=== PATIENT | female | born 1965 | race Caucasian/White ===

== ENCOUNTER 2021-01-11 15:45 | Outpatient (CLI) | payer BC, SELFPAY | END 2021-01-11 15:46 | disposition home or self-care (01) | LOC: ANHCOVIDVC 15:46 | PROVIDERS: PCP Family Medicine | DX: Z23 Encounter for immunization (principal) | CPT/HCPCS: 0001A; 91300 ==

== ENCOUNTER 2021-02-01 15:44 | Outpatient (CLI) | payer BC, SELFPAY | END 2021-02-01 15:45 | disposition home or self-care (01) | LOC: ANHCOVIDVC 15:44 | PROVIDERS: PCP Family Medicine | DX: Z23 Encounter for immunization (principal) | CPT/HCPCS: 0002A; 91300 ==

== ENCOUNTER → 2022-10-08 16:33 | Outpatient (CLI) | payer BC, SELFPAY ==
--- NOTE | ~2022-10-08 | XR_ITS ---
XR hip RT 2V w AP pelvis DATE: 10/08/2022 19:21 INDICATION: Right groin pain. No injury. TECHNIQUE: AP pelvis. AP and lateral views of right hip COMPARISON: None FINDINGS: There is moderate bilateral hip osteoarthritis, right greater than left. No fracture or dis location, avascular necrosis or bone destruction of the right hip is detected. No pelvic fracture or bone destruction. Normal alignment at the pubic symphysis and sacroiliac joints . IMPRESSION: Moderate bilateral hip osteoarthritis, right greater than left Reviewed, dictated and finalized at location B. PRODUCER
== END ==
PROVIDERS: PCP Nurse Practitioner Family; Visit Provider Nurse Practitioner Family
DX: M16.0 Bilateral primary osteoarthritis of hip (principal)
CPT/HCPCS: 73502

== ENCOUNTER 2022-12-27 15:30 | Outpatient (RCR) | payer BC, SELFPAY ==
--- NOTE | 2022-10-25 12:42 | PTOPEVAL1 ---
Assessment and note entered by Felisa Ny, PT, DPT Evaluation Information Assessment Status Evaluation Diagnosis marquita hip and lower back pain Onset 3 months Subjective Information Pt states she went to the othro doctor and was told she has marquita hip spurring and arthritis R>L. She states it feel like her hips pops out of place and she has to walk with a cane because it hurts so bad and other days she has very minimal pain. She states her hip pain starts first and after being up and moving for a while, her back starts to hurt, she states d/t compensation. She states intermittent sharp pain that shoots down the front of her legs. Reported Pain Level Pain Score 3: Self Report Assessment PT Clinical Summary Teresita presents to therapy today for her initial evaluation with a diagnosis R hip pain. Today she demonstrates decreased active and passive hip ROM marquita, that is limited by pain and resistance. She has decreased hip strength in all planes of motion R>L. She ambulates with a decreased gait speed and decreased stride length, flexed posture, and shuffles her feet 100% of the time. Skilled physical therapy services are indicated to progress hip strength and ROM, to improve mobility , to minimize gait deviations, and to return to baseline function. Plan of Care Interventions Electrical Stimulation,Gait Training,Hot Pack/Cold Pack,Manual Therapy,Neuro Re-education, Therapeutic Activities,Therapeutic Exercise PT Services Indicated Yes Treatment Frequency and 2x/wk for 4 wks Duration These treatments will address the objective and functional deficits as defined above. The patient will be advanced safely and appropriately in order for the patient to progress towards his/her prior level of function. Additional exercises will be introduced and as well as a comprehensive home exercise program upon discharge, if needed, ?to ensure carryover of functional gains achieved in the clinic. This treatment plan has been reviewed and agreement upon by the patient.
--- NOTE | 2022-11-21 16:07 | PTOPPROG ---
Assessment and note entered by Felisa Ny, PT, DPT Evaluation Information Assessment Status Progress Diagnosis marquita hip and lower back pain Onset 3 months Subjective Information Pt states she was extremely sore after Tuesdays treatment but woke up Friday with no pain and has not had any pain since, just muscle soreness. She states overall the front past of her R hip is where she has most of her pain. Pt reports 50% improvement in overall symptoms. She states she has less pain overall and her balance is improving . Assessment PT Clinical Summary Teresita presents to therapy today for her progress report following 7 visits of skilled therapy to treat her marquita hip pain. Today reports decreased frequency and intensity of her pain. She demonstrates improved strength and improve active and passive hip ROM, but still decreased from expected. She ambulates with mild gait deviations and fatigues quickly increasing her gait deviations. She is progressing well towards and reports good compliance with her HEP. Continuation of skilled physical therapy services are indicated to continue improving the deficits noted above, to progress towards therapy goals, and to improve functional mobility. Plan of Care Interventions Electrical Stimulation,Gait Training,Hot Pack/Cold Pack,Manual Therapy,Neuro Re-education, Therapeutic Activities,Therapeutic Exercise PT Services Indicated Yes Treatment Frequency and 1x/wk for 5 wks Duration These treatments will address the objective and functional deficits as defined above. The patient will be advanced safely and appropriately in order for the patient to progress towards his/her prior level of function. Additional exercises will be introduced and as well as a comprehensive home exercise program upon discharge, if needed, ?to ensure carryover of functional gains achieved in the clinic. This treatment plan has been reviewed and agreement upon by the patient.
--- NOTE | 2022-12-19 16:57 | PCPTNOTE ---
Canceled due to increased heel pain, following up with ortho.
--- NOTE | 2022-12-27 16:31 | PTOPDC ---
Assessment and note entered by Felisa Ny, PT, DPT Evaluation Information Assessment Status Discharge Diagnosis marquita hip and lower back pain Onset 3 months Subjective Information Pt states she consulted a foot doctor, they suggest that she has surgery to address her bunion and marquita pronation. Her surgery is scheduled for February. She states her his is still sore and painful, on the R. Her R hip pain is mostly in the groin area. She states her L hip has started to pop and click with certain motions. Reported Pain Level Pain Score 2: Self Report Assessment PT Clinical Summary Teresita presents to therapy today for her progress report following 12 visits to treat her marquita heel pain. Today she demonstrates minimal hip ROM improves but has improved her strength. Her HEP was progressed. She will be discharged from skilled therapy services at this time as she is soon having marquita foot surgeries. If she is to continue therapy at a later date she will need a new order. Plan of Care PT Services Indicated No Treatment Frequency and to be discharged Duration
== END 2022-12-30 10:16 | disposition home or self-care (01) ==
LOC: ANHGOSHPT 15:30
PROVIDERS: PCP Nurse Practitioner Family; Visit Provider Nurse Practitioner
DX: M54.41 Lumbago with sciatica, right side (principal); M16.11 Unilateral primary osteoarthritis, right hip; M25.551 Pain in right hip
CPT/HCPCS: 97110; 97112; 97140; 97161; 97530

== ENCOUNTER 2023-04-18 11:52 | Outpatient (CLI) | payer BC, SELFPAY ==
[2023-04-18 16:41] LABS: Cholesterol 229 mg/dL (0-200); HDL Direct 55 mg/dL; Triglycerides 108 mg/dL (<150)
[2023-04-18 16:51] LABS: LDL Cholesterol Direct 133 mg/dL
== END 2023-04-18 11:53 | disposition home or self-care (01) ==
LOC: ANHGOSHLAB 11:53
PROVIDERS: PCP Nurse Practitioner Family; Visit Provider Family Medicine
DX: E03.9 Hypothyroidism, unspecified (principal); E78.5 Hyperlipidemia, unspecified
CPT/HCPCS: 36415; 80061; 84443

== ENCOUNTER 2023-06-17 12:29 | Outpatient (CLI) | payer BC, SELFPAY ==
--- NOTE | 2023-06-17 12:30 | ECG_ITS ---
Measurements Intervals [place] Rate: 62 P: 19 NC: 154 QRS: -20 QRSD: 99 T: 2 QT: 388 QTc: 396 Interpretive Statements SINUS RHYTHM LOW QRS VOLTAGE IN PRECORDIAL LEADS [QRS DEFLECTION < 1.0 mV IN CHEST LEADS] POOR R WAVE PROGRESSION NO PREVIOUS ECG AVAILABLE FOR COMPARISON Electronically Signed On 06-17-2023 14:41:52 CDT by Julissa Metz M.D.
== END 2023-06-17 12:30 | disposition home or self-care (01) ==
LOC: ANHSURGERY 12:37
PROVIDERS: PCP Family Medicine; Visit Provider Podiatrist Foot & Ankle Surgery
DX: I10 Essential (primary) hypertension (principal); Z01.818 Encounter for other preprocedural examination
CPT/HCPCS: 93005

== ENCOUNTER 2023-06-20 00:30 | Day surgery (SDC) | payer BC, SELFPAY ==
--- NOTE | 2023-06-16 14:04 | PC.NURSE ---
Report to the Outpatient Waiting Room, entrance under the green pavilion located off [facility], at time __0830 on date __06/20/23 . Planned Procedure Time: __1030 . Time changes happen often and if your time is changed the preop area will call you the afternoon before. - You and your visitor will be asked to self-screen and do not enter if you have any COVID symptoms. - A mask is optional within the hospital at this time. Patients may have clear liquids (water, carbonated beverages, clear teas, apple juice) until 3 hours prior to surgery with a maximum of 20 ounces. - No food from midnight until time of surgery - Infants may have breast milk until 4 hours before surgery, infant formula 6 hours prior to surgery. - Children will be allowed to drink immediately following surgery. If applicable, please bring a bottle or sippy cup to assist with drinking. Juice, water, soda, and popsicles are readily available. For infants on formula, please bring formula the day of surgery. Pacifiers are allowed. Take the following medications with a SIP of water the morning of surgery: __LEVOTHYROXINE DO NOT STOP ANY OF YOUR OTHER PRESCRIPTION MEDICATIONS PRIOR TO SURGERY ?EXCEPT THE FOLLOWING Medications to discontinue per physician ALL VITAMINS AND SUPPLEMENTS 3 DAYS PRE OP.LAST DOSE 06/16/23 Please no make-up, nail occitan, hairspray, perfume, deodorant, or body powder the day of surgery. No jewelry (including any body piercings) or valuables the day of surgery, leave them at home. Please take a shower or bath the night before, or the morning of, surgery with an antibacterial soap. Wear comfortable, loose fitting clothing. Children are encouraged to wear pajamas. - Jewelry must be removed prior to entering the operating room. Rings and piercings that are not removed may be cut off. - The hospital will not accept responsibility for valuables. - Please leave all valuables, including medications, at home the day of surgery. If you are going home after surgery, a licensed food service driver must drive you home. - NO public transportation without another adult if you receive anesthesia. - We recommend that an adult stay with you for 24 hours following discharge. - We also recommend that you do not drive, make important decision, drink alcoholic beverages, or take any drugs that were not prescribed by your health care provider for at least 24 hours after your discharge time. For Pediatric surgeries, we recommend two adults accompany the child home. Follow any additional instructions given to you from your surgeon. If you or anyone in your household have experienced Covid symptoms in the past week, please notify your surgeon or the nurse liaison at the phone number below for possible testing. Telephone instructions given to ___PATIENT and asked if any additional questions and then verbalized understanding. Patient advised to call surgeon office or pre surgery nurse liaison [phone] if any additional questions.
[2023-06-16 14:11] VITALS: BMI 38.6
[2023-06-20] VITALS (12 sets, daily range): BP systolic 100–135; BP diastolic 62–92; PULSE 63–83; RESP 12–18; TEMP 36.2–36.4; O2SAT 95–99
--- NOTE | ~2023-06-20 | XR_ITS ---
EXAMINATION: XR surgery orthopedic DATE: 06/20/2023 11:13 INDICATION: Arthrodesis in the left foot TECHNIQUE: 5 fluoroscopic images of the left foot were obtained during procedure performed by Dr. Jerson coello. Radiologist was not present for the imaging or procedure. The amount of fluoroscopy time used during this procedure was 0.5 minutes. COMPARISON: None. FINDINGS: Postoperative change of prior bunionectomy at the medial head of the first metatarsal and first metat arsophalangeal arthrodesis with dorsal plate and screw fixation. There is also been a prior osteotomy at the anterior process of the calcaneus with lateral plate and screw fixation. A needle likely for marking project over the anterior process of the calcaneus on the initial image. Alignment post fixat ion appears near-anatomic. No fractures identified. Mild polyarticular osteoarthritis at the tarsomet atarsal joints. Moderate-sized plantar calcaneal spur. IMPRESSION: 1. Fluoroscopy utilized during bunionectomy and instrumented first metatarsophalangeal arthrodesis. 2. Likely realignment osteotomy at the anterior process of the calcaneus with lateral plate and screw fixation. Reviewed, dictated and finalized at location A. IMPRESSION: 1. Fluoroscopy utilized during bunionectomy and instrumented first metatarsopha langeal arthrodesis. 2. Likely realignment osteotomy at the anterior process of the calcaneus with l ateral plate and screw fixation.
--- NOTE | 2023-06-20 07:18 | WPDHPUPDATE1 ---
History and Physical Update Update Date/Time: 06/20/23 07:18 History and Physical has been reviewed, including an updated exam of the patient. There are NO changes in the patient's condition. Risks, benefits, and alternatives have been discussed and questions answered. Patient agrees to proceed with procedure.
--- NOTE | 2023-06-20 08:42 | WPDANESEPPF ---
Anes - Initial Pre Proc Eval Procedure: Operation Date: 06/20/23 09:00 Proposed Procedures p Arthrodesis of First Metatarsal Phalangeal Joint Left Foot - Thad Shaver JR, MD s Toro Calcaneal Osteotomy Left Foot - Thad Shaver JR, MD Date/Time: 06/20/23 08:42 Surgeon: Thad Shaver JR, MD Pre Op Diagnosis: Arthritic Bunion Lt Foot,Talotarsal Instab Lt Foot Patient Data Age: 57 Gender: F Height: 1.63 m Weight: 103.3 kg Last Vital Signs Temp 36.2 C L 06/20/23 07:25 Pulse 75 06/20/23 07:25 Resp 18 06/20/23 07:25 BP 135/92 H 06/20/23 07:25 Pulse Ox 97 06/20/23 07:25 O2 Del Method Room Air 06/20/23 07:25 Allergies Allergy/AdvReac Type Severity Reaction Status Date / Time No Known Allergies Allergy Verified 06/20/23 08:06 Home Medications Medication Instructions Recorded Confirmed Type cholecalciferol (vitamin D3) 50 100 mcg PO DAILY #90 caps 10/14/22 06/20/23 Rx mcg (2,000 unit) capsule levothyroxine 150 mcg tablet 150 mcg PO DAILY #90 tabs 04/23/23 06/20/23 Rx (Euthyrox) losartan 25 mg tablet 25 mg PO DAILY #90 tabs 05/28/23 06/20/23 Rx multivitamin (Daily Multi-Vitamin 1 tablet PO DAILY 06/16/23 06/20/23 History tablet) Patient hx anesthesia problems: post op nausea/vomiting Family hx anesthesia problems: none Results Review: All pre-operative results and documents have been reviewed as part of the pre-operative evaluation. [facility] Past Medical History Medical History Dyslipidemia Essential hypertension Hypothyroidism (acquired) (~1997) Iron (Fe) deficiency anemia , delivered (~1998) Vitamin D deficiency Surgical History Surgical History H/O arthroplasty (~1995) d/t ACL and meniscal injury History of 2 sections 1996, 2003 History of appendectomy (~1986) History of total left knee replacement (~03/2019) [facility] Orthopedic S/P cholecystectomy (~1994) Family History Family History Father Hypertension Family history of pancreatic cancer, Onset Age: 58 Grandparent Diabetes mellitus Social History Social History Social History: Teresita is , she lives in [place] with her Melvin. 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 Caffeine-coffee/tea Smoking status: Never smoker Alcohol intake: current Alcohol use details: 2 DRINKS PER MONTH Substance use: never Lack of Transportation: No Lack of Food: Never True Current Housing: I Have Housing Concerned About Future Housing: No Difficulty Paying Gas/Electric Bills: No Difficulty Paying for Meds: No Currently Unemployed: No Education: Bachelor's Degree Difficulty w/ Childcare or Family Care: No Living arrangements: with family Spiritual care concerns: No Anes - Eval Final PreProcedure Day of Procedure 06/20/23 08:42 Patient weight: morbidly obese Heart: regular rate and rhythm Lungs: clear to auscultation Airway: Mallampati scale class II Neurological: alert and oriented Last oral intake: >/= 8 hours ASA classification: III Emergent: no Anesthetic plan: proceed Anesthesia type and monitoring: general LMA and standard monitoring Results Review: All pre-operative results and documents have been reviewed as part of the pre-operative evaluation. Informed Consent: The patient's anesthetic plan and its attendant risks and benefits were discussed with the patient/family/POA. Questions were solicited and answers provided to the satisfaction of the patient/family/POA.
[2023-06-20] MEDS: LACTATED RINGERS 1,000 ML 30 ML IV CONT ×2 (09:20→12:42)
[2023-06-20] MEDS: SCOPOLAMINE 1.5 MG PATCH TRANSDERM (09:27)
--- NOTE | 2023-06-20 09:33 | WPDANESPNB ---
Anes - Peripheral Nerve Block Date/Time: 06/20/23 09:33 I have discussed with the patient/family/POA the placement of a peripheral nerve block for post-operative pain management, including associated risks, benefits, complications, and side effects. Alternative methods of post-operative analgesia were detailed. Questions were solicited and answers provided to the satisfaction of the patient/family/POA. Time-Out: A pre-procedural Time-Out was completed immediately before starting the procedure and confirmed: Patient Identification, Site, Procedure, Patient Position and the Availability of Requisite Equipment. Clinical Indications: Acute post-operative pain management requested by the operative surgeon. Nerve Block Insertion Note Anes-nerve block: posterior fossa sciatic left and other (Saphenous) Patient position: supine Skin prep: chlorhexidine Needle: 22 gauge, stimulating, insulated echogenic needle. Needle length: 80 mm Technique: nerve stimulation lost at (mA) (0.3) Technique comment: mid2mg [id number] Injectate: bupivacaine 0.5% with epi 5 mcg/ml (20/10ml no epi) and dexamethasone (mg) (4) Observations: tolerated well Complications: none Procedure start time:: 922 Procedure end time:: 929
[2023-06-20] MEDS: ceFAZolin 2 GM/D5W 50 ML 2 GM/50 ML BAG IVPB (09:34)
--- NOTE | 2023-06-20 11:40 | W.PM.PROC2 ---
Procedure Note - Detailed Date of Procedure 06/20/23 Pre-op Diagnosis 1. Arthritic bunion left foot 2. Talotarsal instability left foot Post-op Diagnosis Same Procedure Performed 1. Arthrodesis of the first metatarsal phalangeal joint left foot 2. Toro anterior calceneal osteotomy left foot Surgeon Thad Shaver JR, DPM Anesthesia General and Regional Indications Painful pes planovalgus deformity left foot Painful left foot bunion Findings Loss of cartilage to the first metatarsal phlangeal joint Description of Procedure PROCEDURE IN DETAIL: Under mild sedation, the patient was brought into the operating room, placed on the operating table in supine position. A pneumatic ankle tourniquet was placed about the patient's ipsilateral ankle. Following general anesthesia and a popliteal fossa block, the foot was then scrubbed, prepped, and draped in the usual aseptic manner. An Esmarch bandage was then used to exsanguinate the patient's foot and the pneumatic ankle tourniquet was then inflated. Attention was directed to the lateral aspect of the hindfoot.? An incision was made starting just distal to the lateral malleolus and extending towards the base of the calcaneal cuboid joint.? The extensor digitorum brevis muscle was detached partially from its origin to expose the calcaneal cuboid joint and distal lateral aspect of the anterior calcaneus. The peroneal tendons were carefully retracted inferiorly. The periosteal tissue was dissected approximately 1.5cm proximal to the calcaneal cuboid joint. At this point a sagittal saw blade was used to make an osteotomy parallel with the calcaneal joint however 1.5cm proximal to the joint, the medial cortical hinge was preserved. Two Tania pins were placed proximal and distal to the osteotomy site and the osteotomy was opened until the talar head was fully covered by the navicular, noted under fluoroscopy. This also helped slightly plantarflex the first ray. A 10mm? [employer] allograft wedge was tamped into the osteotomy and fixated with a linear 2 hole locking plate from [employer] with two locking screws.? The distractor was removed and transverse plane deformity of the patients flat foot well reduced, with the talar head now fully covered by the navicular. I reattached the origin of the extensor digitorum brevis to the periosteal tissue along the lateral calcaneus. Next, I reapproximated the subcutaneous structures with 4.0 Vicryl and the skin with 4-0 Proline in horizontal mattress suture fashion technique. Attention was directed to the dorsal aspect of the 1st metatarsophalangeal joint where there was a hallux valgus deformity noted with a prominent first metatarsal phalangeal joint medially. The incision was made starting along the central shaft of the 1st metatarsal and extending just proximal to the interphalangeal joint of the hallux. The incision was continued deep down through the subcutaneous tissues using sharp and blunt dissection. All bleeders were cauterized as necessary. At this point, the dissection was continued down to the level of the periosteum and capsular structures overlying the 1st metatarsophalangeal joint. A full length periosteum and capsular incision was made just medial to the extensor hallucis longus tendon. The periosteum and capsular structures were freed from the base of the proximal phalanx as well as the distal 1st metatarsal. At this point, the 1st metatarsophalangeal joint was identified. There was loss of articular cartilage to the head of the 1st metatarsal, mostly medially as well as the base of the proximal phalanx worse medially. There was broadening and hypertrophy of the 1st metatarsophalangeal joint. Utilizing a sagittal bone saw, the hypertrophied 1st metatarsal was resected dorsally, medially, and laterally. A power bur was used to make sure that there were no rough edges and also to further debride the hypertrophic 1st metatarsal.
[2023-06-20] MEDS: ONDANSETRON INJ 4 MG/2 ML VIAL IV PUSH (11:48)
[2023-06-20] MEDS: fentaNYL CITRATE INJ (*CRX) 100 MCG/2 ML VIAL 25 MCG IV PUSH ×3 (12:01→12:14)
[2023-06-20] MEDS: diphenhydrAMINE HCl INJ 50 MG/ML VIAL 25 MG IV PUSH (12:41)
[2023-06-20] MEDS: PROMETHAZINE HCL 25 MG/ML AMPUL 6.25 MG IV PUSH (13:23)
== END 2023-06-20 14:13 | disposition home or self-care (01) ==
PROVIDERS: PCP Family Medicine; Visit Provider Podiatrist Foot & Ankle Surgery
PROC: (CPT 28750; principal; 2023-06-20 09:00)
PROC: (CPT 28715; 2023-06-20 09:00)
DX: M21.612 Bunion of left foot (principal); M25.375 Other instability, left foot; G89.18 Other acute postprocedural pain; E03.9 Hypothyroidism, unspecified; E55.9 Vitamin D deficiency, unspecified; D50.9 Iron deficiency anemia, unspecified; E66.01 Morbid (severe) obesity due to excess calories; Z68.39 Body mass index [BMI] 39.0-39.9, adult
CPT/HCPCS: 28750; 28300; 64445; 64450; 99199; A9270; C1713; J0330; J0690; J1100; J1200; J2250; J2405; J2550; J2704; J3010; J7120

== ENCOUNTER 2023-10-24 11:30 | Outpatient (CLI) | payer BC, SELFPAY ==
[2023-10-24 15:41] LABS: Basophils Percent Auto 0.5 % (0.2-1.2); Eosinophils Absolute Auto 0.1 K/mm3 (0-0.3); Eosinophils Percent Auto 1.4 % (0-4.4); Hemoglobin 14.3 g/dL (12.0-15.0); Immature Granulocyte Absolute 0.01 K/mm3 (0.00-0.031); Immature Granulocyte Percent A 0.2 % (0-0.5); Lymphocytes Absolute Auto 1.77 K/mm3 (0.9-3.2); Lymphocytes Percent Auto 30.2 % (18.3-44.2); Mean Corpuscular HGB Conc 31.8 g/dl (32-36); Mean Corpuscular Hemoglobin 29.7 pg (26-34); Mean Corpuscular Volume 93.6 fl (80-100); Mean Platelet Volume 10.1 fl (7.4-10.4); Monocytes Absolute Auto 0.5 K/mm3 (0.1-0.6); Monocytes Percent Auto 8.5 % (2.6-8.5); Neutrophils Absolute Auto 3.5 K/mm3 (1.3-6.7); Neutrophils Percent Auto 59.2 % (45.5-73.1); Platelet Count Result 351 k/mm3 (150-375); Red Blood Count 4.81 M/mm3 (4.2-5.4); Red Cell Distribution Width 13.7 % (11.5-14.5); White Blood Count 5.9 K/mm3 (4.5-10.0)
[2023-10-24 18:06] LABS: Alanine Aminotransferase 32 U/L (6-35); Albumin Level 4.3 g/dL (3.5-5.1); Alkaline Phosphatase 105 U/L (38-126); Anion Gap 9 mmol/L (8-16); Aspartate Amino Transferase 42 U/L (14-36); Bilirubin,Total 0.7 mg/dL (0.2-1.3); Blood Urea Nitrogen 9 mg/dL (7-17); Calcium 9.4 mg/dL (8.4-10.2); Carbon Dioxide 26 mmol/L (22-30); Chloride 104 mmol/L (98-107); Cholesterol 213 mg/dL (0-200); Estimated Glomerular Filt Rate > 60; Glucose 83 mg/dL (65-110); HDL Direct 54 mg/dL; Potassium 4.1 mmol/L (3.4-5.0); Sodium 139 mmol/L (137-145); Triglycerides 82 mg/dL (<150)
[2023-10-24 18:18] LABS: LDL Cholesterol Direct 117 mg/dL
[2023-10-29 11:25] LABS: Vitamin D 1,25 (OH)2 Total 47 pg/mL (18-72); Vitamin D2 1,25 (OH)2 <8 pg/mL; Vitamin D3 1,25 (OH)2 47 pg/mL
== END 2023-10-24 11:31 | disposition home or self-care (01) ==
LOC: ANHGOSHLAB 11:31
PROVIDERS: PCP Family Medicine; Visit Provider Nurse Practitioner Family
DX: E55.9 Vitamin D deficiency, unspecified (principal); I10 Essential (primary) hypertension; E03.9 Hypothyroidism, unspecified
CPT/HCPCS: 36415; 80053; 80061; 82652; 84443; 85025

== ENCOUNTER 2023-11-11 13:43 | Outpatient (CLI) | payer BC, SELFPAY ==
--- NOTE | ~2023-11-11 | XR_ITS ---
EXAMINATION: XR lg joint inject/asp w image DATE: 11/11/2023 14:50 INDICATION: Chronic right hip pain. TECHNIQUE: A time-out was performed to verify the patient's name, date of , and procedure to b e performed. The procedure including the risks, benefits, and alternatives was discussed with the pat ient. Risks discussed included bleeding and infection. The patient understood the risks and agreed to proceed. The skin overlying the right hip joint was prepped and draped in usual sterile fashion. A nesthetic was administered with 1% lidocaine subcutaneously. A 22 G needle was advanced under fluoro scopic guidance into the joint. Subsequently, injectate consisting of 4 mL 1% lidocaine and 1 mL 80 mg/mL Depo-Medrol was instilled. The needle was removed and the entry site was cleaned and dressed. There were no immediate complications. Fluoroscopy exposure time was 0.1 minutes. The total number o f images was 1. FINDINGS: Real-time fluoroscopy demonstrates the needle in the right hip joint. Patient's pain prior to procedure:6/10. Patient's pain following the procedure: 02/10. IMPRESSION: 1. Fluoroscopy guided right hip joint injection of local anesthetic and steroid with decrease in the patient's presenting pain. Reviewed, dictated and finalized at location A. L BEARING BROACHER
== END 2023-11-11 13:44 | disposition home or self-care (01) ==
PROVIDERS: PCP Family Medicine; Visit Provider Orthopaedic Surgery
DX: M16.11 Unilateral primary osteoarthritis, right hip (principal)
CPT/HCPCS: 20610; 77002; J1040

== ENCOUNTER 2023-12-26 08:36 | Day surgery (SDC) | payer BC, SELFPAY ==
[2023-11-27 10:43] VITALS: BMI 39.3
--- NOTE | 2023-12-24 08:49 | SUR.PREOP ---
Patient called regarding upcoming procedure. Reviewed preop instructions, appointment times, and procedure prep.
--- NOTE | 2023-12-25 20:45 | PM.HPGS ---
History of Present Illness History of Present Illness Consent: Risks, benefits, and alternatives have been discussed and questions answered. Patient agrees to proceed with procedure. Chief complaint: hx of colon polyps Narrative: Teresita Hugo is a 58 year old female who is referred for colon cancer screening. She had a polyp removed 5 yrs ago Review of Systems Review of Systems: All systems reviewed & are unremarkable except as noted in HPI and below PMFSH Past Medical History Medical History Dyslipidemia Essential hypertension Hypothyroidism (acquired) (~1997) Iron (Fe) deficiency anemia , delivered (~1998) Vitamin D deficiency Surgical History Surgical History H/O arthroplasty (~1995) d/t ACL and meniscal injury History of 2 sections 1996, 2003 History of appendectomy (~1986) History of foot surgery left- bunion/flat foot History of total left knee replacement (~03/2019) [facility] S/P cholecystectomy (~1994) Family History Family History Father Hypertension Family history of pancreatic cancer, Onset Age: 58 Grandparent Diabetes mellitus Social History Social History Social History: Teresita is , she lives in [place] with her Melvin. 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 Caffeine-coffee/tea Smoking status: Never smoker Alcohol intake: current Alcohol use details: Rarely Substance use: never Substance use type: does not use Do You Feel Safe in your Home?: Yes Lack of Transportation: No Lack of Food: Never True Current Housing: I Have Housing Concerned About Future Housing: No Difficulty Paying Gas/Electric Bills: No Difficulty Paying for Meds: No Currently Unemployed: No Education: Bachelor's Degree Difficulty w/ Childcare or Family Care: No Living arrangements: other Additional living arrangements comments: with sp Occupation/Education: occupation Additional occupation/education comments: IT Spiritual care concerns: No Meds Home Medications and Allergies Home Medications Medication Instructions Recorded Confirmed Type cholecalciferol (vitamin D3) 50 100 mcg PO DAILY #90 caps 10/14/22 11/27/23 Rx mcg (2,000 unit) capsule levothyroxine 150 mcg tablet 150 mcg PO DAILY #90 tabs 04/23/23 12/26/23 Rx (Euthyrox) multivitamin (Daily Multi-Vitamin 1 tablet PO DAILY 06/16/23 11/27/23 History tablet) losartan 25 mg tablet 25 mg PO DAILY #90 tabs 12/18/23 12/26/23 Rx Allergies Allergy/AdvReac Type Severity Reaction Status Date / Time No Known Allergies Allergy Verified 12/26/23 08:13 Exam Const: General: alert Orientation/consciousness: patient oriented x3 Resp: Auscultation: clear to auscultation bilaterally Cardio: Rhythm: regular rhythm GI: GI Palp: Yes Soft to palpation and No Tenderness to palpation present (GI) Neuro: General: patient oriented x3 Assessment and Plan Assessment and plan (1) Personal history of colonic polyps: Code(s): Z86.010 - Personal history of colonic polyps Status: Acute Assessment and Plan: Colonoscopy with possible biopsy or polypectomy or cautery or injection of substances.
[2023-12-26 08:17] VITALS: BP 135/93; PULSE 84; RESP 16; TEMP 36.4; O2SAT 97
[2023-12-26] MEDS: LACTATED RINGERS 1,000 ML 150 ML IV CONT (08:24)
--- NOTE | 2023-12-26 08:32 | WPDANESEPPF ---
Anes - Initial Pre Proc Eval Procedure: Operation Date: 12/26/23 09:30 Proposed Procedures p Colonoscopy - Bharathi Miner MD Date/Time: 12/26/23 08:32 Surgeon: Bharathi Miner MD Pre Op Diagnosis: hx of colon polyps Patient Data Age: 58 Gender: F Height: 1.63 m Weight: 104 kg Last Vital Signs Temp 97.6 F 12/26/23 08:17 Pulse 84 12/26/23 08:17 Resp 16 12/26/23 08:17 BP 135/93 H 12/26/23 08:17 Pulse Ox 97 12/26/23 08:17 O2 Del Method Room Air 12/26/23 08:17 Allergies Allergy/AdvReac Type Severity Reaction Status Date / Time No Known Allergies Allergy Verified 12/26/23 08:13 Home Medications Medication Instructions Recorded Confirmed Type cholecalciferol (vitamin D3) 50 100 mcg PO DAILY #90 caps 10/14/22 11/27/23 Rx mcg (2,000 unit) capsule levothyroxine 150 mcg tablet 150 mcg PO DAILY #90 tabs 04/23/23 12/26/23 Rx (Euthyrox) multivitamin (Daily Multi-Vitamin 1 tablet PO DAILY 06/16/23 11/27/23 History tablet) losartan 25 mg tablet 25 mg PO DAILY #90 tabs 12/18/23 12/26/23 Rx Patient hx anesthesia problems: none Family hx anesthesia problems: none Results Review: All pre-operative results and documents have been reviewed as part of the pre-operative evaluation. [facility] Past Medical History Medical History (Updated 10/23/23 @ 09:31 by Blayne Kilgore MD) Dyslipidemia Essential hypertension Hypothyroidism (acquired) (~1997) Iron (Fe) deficiency anemia , delivered (~1998) Vitamin D deficiency Surgical History Surgical History (Updated 10/23/23 @ 09:16 by Mary Gross CMA) H/O arthroplasty (~1995) d/t ACL and meniscal injury History of 2 sections 1996, 2003 History of appendectomy (~1986) History of foot surgery left- bunion/flat foot History of total left knee replacement (~03/2019) [facility] Orthopedic S/P cholecystectomy (~1994) Family History Family History Father Hypertension Family history of pancreatic cancer, Onset Age: 58 Grandparent Diabetes mellitus Social History Social History (Updated 10/23/23 @ 09:17 by Mary Gross CMA) Social History: Teresita is , she lives in [place] with her Melvin. 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 Caffeine-coffee/tea Smoking status: Never smoker Alcohol intake: current Alcohol use details: Rarely Substance use: never Substance use type: does not use Do You Feel Safe in your Home?: Yes Lack of Transportation: No Lack of Food: Never True Current Housing: I Have Housing Concerned About Future Housing: No Difficulty Paying Gas/Electric Bills: No Difficulty Paying for Meds: No Currently Unemployed: No Education: Bachelor's Degree Difficulty w/ Childcare or Family Care: No Living arrangements: other Additional living arrangements comments: with sp Occupation/Education: occupation Additional occupation/education comments: IT Spiritual care concerns: No Anes - Eval Final PreProcedure Day of Procedure 12/26/23 08:32 Patient weight: morbidly obese Heart: regular rate and rhythm Lungs: clear to auscultation Airway: Mallampati scale class III Neurological: alert and oriented Last oral intake: >/= 8 hours ASA classification: III Emergent: no Anesthetic plan: proceed Anesthesia type and monitoring: general GIVS and standard monitoring Results Review: All pre-operative results and documents have been reviewed as part of the pre-operative evaluation. Informed Consent: The patient's anesthetic plan and its attendant risks and benefits were discussed with the patient/family/POA. Questions were solicited and answers provided to the satisfaction of the patient/family/POA.
[2023-12-26] MEDS: SIMETHICONE ORAL SUSPENSION 20 MG/0.3 ML 30 ML BOTTLE 0.6 ML IRRIGATION (09:39)
[2023-12-26 09:51] VITALS: BP 112/77; PULSE 58; RESP 18; O2SAT 97
[2023-12-26 10:01] VITALS: BP 116/76; PULSE 56; RESP 18; O2SAT 97
[2023-12-26 10:11] VITALS: BP 118/76; PULSE 54; RESP 18; O2SAT 98
== END 2023-12-26 10:17 | disposition home or self-care (01) ==
PROVIDERS: PCP Family Medicine; Visit Provider Internal Medicine Gastroenterology
PROC: 0DJD8ZZ Inspection of Lower Intestinal Tract, Via Natural or Artificial Opening Endoscopic (ICD-10-PCS; CPT 45378; principal; 2023-12-26 09:30)
DX: Z12.11 Encounter for screening for malignant neoplasm of colon (principal); K57.30 Diverticulosis of large intestine without perforation or abscess without bleeding; Z86.010 Personal history of colon polyps; I10 Essential (primary) hypertension; E03.9 Hypothyroidism, unspecified; E55.9 Vitamin D deficiency, unspecified; D50.9 Iron deficiency anemia, unspecified; E66.01 Morbid (severe) obesity due to excess calories; Z68.39 Body mass index [BMI] 39.0-39.9, adult
CPT/HCPCS: 45378; J2001; J2704; J7120

== ENCOUNTER 2024-09-16 09:42 | Outpatient (CLI) | payer BC, SELFPAY ==
--- NOTE | ~2024-09-16 | MR_ITS ---
EXAMINATION: MR foot LT wo con DATE: 09/16/2024 10:32 INDICATION: Left midfoot arthralgia TECHNIQUE: Magnetic resonance imaging (MRI) of the left fore/mid foot was performed without intraveno us contrast. Sequences included sagittal T1-weighted FSE, sagittal fluid sensitive FSE STIR, coronal PD-weighted FS FSE, coronal T1-weighted FSE, coronal fluid sensitive FSE STIR, axial PD-weighted FS F SE, axial fluid sensitive FSE STIR, and axial PD-weighted FSE. COMPARISON: 06/20/2023 FINDINGS: First metatarsophalangeal arthrodesis dorsal plate-screw fixation. Partially visualized additional la teral side plate and screw fixation spanning a likely realignment osteotomy at the anterior calcaneus . There is some magnetic field artifact associated with the fixation instrumentation. Bone alignment appears near-anatomic. No fracture or pathologic marrow replacing process. Mild osteoarthritis at the calcaneocuboid, naviculocuneiform and multiple tarsometatarsal and interphalangeal joints. Likely de generative mild subarticular cystlike change at the base of the fourth metatarsal. The visualized por tions of the flexor and extensor tendons are normal. The Lisfranc ligament complex as well as the col lateral ligament complex at the interphalangeal and unfused metatarsophalangeal joints are normal. In trinsic musculature of the foot is unremarkable. No joint effusions, tenosynovitis or other abnormal fluid collections. IMPRESSION: 1. Mild polyarticular osteoarthritis in the mid and forefoot with secondary subarticular cystlike tameka nges at the base of the fourth metatarsal. 2. Postoperative change of instrumented first metatarsophalangeal arthrodesis and instrumented likely realignment osteotomy at the anterior calcaneus. Reviewed, dictated and finalized at location B. [place] [employer]ORE CLERK IMPRESSION: 1. Mild polyarticular osteoarthritis in the mid and forefoot with secondary sub articular cystlike changes at the base of the fourth metatarsal. 2. Postoperative change of instrumented first metatarsophalangeal arthrodesis a nd instrumented likely realignment osteotomy at the anterior calcaneus.
== END 2024-09-16 09:43 | disposition home or self-care (01) ==
LOC: GOSHIMG 09:42
PROVIDERS: PCP Podiatrist Foot & Ankle Surgery; Visit Provider Podiatrist Foot & Ankle Surgery
DX: M25.579 Pain in unspecified ankle and joints of unspecified foot (principal); Z98.1 Arthrodesis status
CPT/HCPCS: 73718

== ENCOUNTER 2024-10-06 11:00 | Outpatient (RCR) | payer BC, SELFPAY ==
--- NOTE | 2024-08-04 09:45 | OPREHPOC ---
Outpatient Therapy Plan of Care This is a Multidisciplinary Plan of Care that may contain components documented by all disciplines (PT, OT, and ST.) PT Problem 1 PT Problem #1 Knowledge Deficit PT Goal 1 Goal / Goal Update 1. Patient will perform independent HEP Target Visit 4 PT Problem 2 PT Problem #2 Pain PT Goal 1 Goal / Goal Update 1. Patient will report pain 3/10 highest with ADL' s Target Visit 10 PT Problem 3 PT Problem #3 Impaired Gait PT Goal 1 Goal / Goal Update 1. Patient will walk 300+ feet on the 2 minute walk test without observable gait deviations Target Visit 10 PT Problem 4 PT Problem #4 Impaired Strength PT Goal 1 Goal / Goal Update 1. Pt will demonstrate improved functional hip strength and be able to lift LE against gravity in supine Target Visit 10 PT Problem 5 PT Problem #5 Impaired Functional ADLs PT Goal 1 Goal / Goal Update 1. Patient able to navigate 2 stairs with reciprocal pattern Target Visit 10
--- NOTE | 2024-08-04 09:46 | PTOPEVAL1 ---
Assessment and note entered by Claritza Ceja DPT Evaluation Information Assessment Status Evaluation Diagnosis m16.11 ICD-10 Condition Codes (PT) Pain in right hip M25.551,Difficulty Walking R26.2 ,Weakness R53.1,Z47.1 Subjective Information PT is s/p R posterior KEVIN on 07/30/24. Highest pain since surgery 6/10 and lowest 0/10. Currently using a walker at all times, states she was not told by MD a time frame for the walker. No home health. Needs some help with dressing right now. Has not attempted cooking or cleaning. Not driving. Prior to surgery, patient was independent with all activities and working in IT (at a desk). Returns to work next week but will be working remotely. Two stairs to get in to the house, stairs to basement but does not have to do them. Patient goal: be able to walk normally again Returns to MD August 31. Reported Pain Level Pain Score 2: Self Report Assessment PT Clinical Summary The patient is presenting to skilled therapy s/p R KEVIN on 07/30/24. She currently presents with gait and balance impairments as well as decreased range of motion. These impairments and contributing to her pain, current walker use, and difficulty dressing independently, as well as doing typical cooking and cleaning. She will highly benefit from skilled therapy to address impairments in order to reduce pain and return to full function. Plan of Care Interventions Electrical Stimulation,Gait Training,Hot Pack/Cold Pack,Manual Therapy,Neuro Re-education,Patient/ Caregiver Education,Therapeutic Activities, Therapeutic Exercise PT Services Indicated Yes Treatment Frequency and 2 times a week for 10 visits Duration These treatments will address the objective and functional deficits as defined above. The patient will be advanced safely and appropriately in order for the patient to progress towards his/her prior level of function. Additional exercises will be introduced and as well as a comprehensive home exercise program upon discharge, if needed, ?to ensure carryover of functional gains achieved in the clinic. This treatment plan has been reviewed and agreement upon by the patient.
--- NOTE | 2024-08-30 12:39 | PCPTNOTE ---
Patient cancelled appointment 08/30/24 due to illness.
--- NOTE | 2024-09-06 14:38 | OPREHPOC ---
Outpatient Therapy Plan of Care This is a Multidisciplinary Plan of Care that may contain components documented by all disciplines (PT, OT, and ST.) PT Problem 1 PT Problem #1 Knowledge Deficit PT Goal 1 Goal / Goal Update 1. Patient will perform independent HEP Target Visit 4 Progress Met PT Problem 2 PT Problem #2 Pain PT Goal 1 Goal / Goal Update 1. Patient will report pain 3/10 highest with ADL' s Target Visit 10 Progress Met PT Problem 3 PT Problem #3 Impaired Gait PT Goal 1 Goal / Goal Update 1. Patient will walk 300+ feet on the 2 minute walk test without observable gait deviations Target Visit 10 Progress Met PT Problem 4 PT Problem #4 Impaired Strength PT Goal 1 Goal / Goal Update 1. Pt will demonstrate improved functional hip strength and be able to lift LE against gravity in supine Target Visit 10 Progress Met PT Problem 5 PT Problem #5 Impaired Functional ADLs PT Goal 1 Goal / Goal Update 1. Patient able to navigate 2 stairs with reciprocal pattern update 09/06/24 1. met 2. Patient able to go to basement with reciprocal pattern and no reports of difficulty Target Visit 18 Progress Partially Met
--- NOTE | 2024-09-06 14:39 | PTOPPROG ---
Assessment and note entered by Claritza Ceja DPT Evaluation Information Assessment Status Progress Diagnosis m16.11 ICD-10 Condition Codes (PT) Pain in right hip M25.551,Difficulty Walking R26.2 ,Weakness R53.1,Z47.1 Subjective Information No right hip pain in the last week. Reports she is very limited by her other hip right now. Is walking with a cane and sometimes without at home. Difficulty putting shoes and socks on still but has been able to start cooking and cleaning again. Has returned to work remotely. Has been able to go down the stairs to the basement but must use her cane and reports she is slower. Still feels some difficulty with sit to stands. Assessment PT Clinical Summary The patient has made good progress in therapy so far. She reports no pain over the last week. She demonstrates improved walking speed and is now only using a cane intermittently. She has been able to start cooking and cleaning but reports continued difficulty donning socks and shoes independently and navigating the stairs to her basement. She will benefit from further therapy to address strength and function to return to prior level. Plan of Care Interventions Electrical Stimulation,Gait Training,Hot Pack/Cold Pack,Manual Therapy,Neuro Re-education,Patient/ Caregiver Education,Therapeutic Activities, Therapeutic Exercise PT Services Indicated Yes Treatment Frequency and 2 times a week for 8 visits Duration These treatments will address the objective and functional deficits as defined above. The patient will be advanced safely and appropriately in order for the patient to progress towards his/her prior level of function. Additional exercises will be introduced and as well as a comprehensive home exercise program upon discharge, if needed, ?to ensure carryover of functional gains achieved in the clinic. This treatment plan has been reviewed and agreement upon by the patient.
--- NOTE | 2024-10-06 11:38 | PTOPDC ---
Assessment and note entered by Claritza Ceja DPT Evaluation Information Assessment Status Discharge Diagnosis m16.11 ICD-10 Condition Codes (PT) Pain in right hip M25.551,Difficulty Walking R26.2 ,Weakness R53.1,Z47.1 Subjective Information No right hip pain in the last week. Reports she is very limited by her other hip right now. Is walking with a cane out in the community but not at home. No limitations due to her R hip at this point. Will be getting the other one operated on in November. Reported Pain Level Pain Score 0: Self Report Pain Score 0: Self Report Assessment PT Clinical Summary The patient has made excellent progress in therapy and reports no limitations regarding her R hip at home and no recent pain. L hip scheduled for surgery in November. She demonstrates improved motion and gait speed. Due to her progress, plan for discharge at this time. Plan of Care PT Services Indicated No
== END 2024-10-06 11:58 | disposition home or self-care (01) ==
LOC: ANHGOSHPT 11:00
PROVIDERS: PCP Family Medicine
DX: Z47.1 Aftercare following joint replacement surgery (principal); M16.11 Unilateral primary osteoarthritis, right hip; M25.551 Pain in right hip; R26.2 Difficulty in walking, not elsewhere classified; R53.1 Weakness; Z96.641 Presence of right artificial hip joint
CPT/HCPCS: 97014; 97110; 97116; 97140; 97161; 97530; G0283

== ENCOUNTER 2024-10-12 08:49 | Outpatient (CLI) | payer BC, SELFPAY ==
[2024-10-25 15:37] VITALS: BMI 42.0
--- NOTE | 2024-10-25 15:37 | P.SLEEP_ITS ---
Sleep Study - Home Unattended Date of Study: 10/12/24 Ordering Provider: Seth Soni DO Interpreting Provider: Shara Grubbs DO Home Sleep Study Type: Watch PAT Height: 1.63 m Weight: 111.13 kg Body Mass Index: 42.0 Neck Circumference (inches): 17.5 [place]: 0 Reason for Sleep Study snoring Sleep History The patient is a 59-year-old female that had a sleep study ordered by her irrigation teacher for evaluation of sleep apnea. The patient admits to snoring loudly, excessive daytime sleepiness and interruptions in breathing while asleep. The patient denies choking or gasping while asleep. She does have trouble breathing on her back. She does have morning headaches. She does have a dry or sore mouth/ throat in the morning. She denies nocturnal heartburn. She does have nocturia. He denies having trouble falling asleep or staying asleep. She does not have difficulty falling back asleep if she wakes up during the night. She denies any hypnotic or sedative use. She denies feeling anxious about sleep. She does feel tired or sleepy during the day. She does feel tired in the morning. She denies having the urge to fall asleep during the day. She denies feeling drowsy while driving. She denies sleep paralysis, cataplexy and hypnagogic / hypnopompic hallucinations. She does clench or grind her teeth. She denies kicking or jerking her legs excessively. She denies having a restless feeling in her legs. She goes to bed at 11:00 p.m. on work days and at midnight on her days off. It takes 15 minutes for her to fall asleep. She typically gets 6 hours of sleep on her work days and 8 hours of sleep on her days off. Her sleep is somewhat restorative on her days off. She denies taking any planned naps. She denies dream enactment behavior. She denies sleep walking. She consumes 1-2 cups of caffeinated beverage per day. She consumes 1 alcoholic beverage 1-2 nights per week. She denies tobacco use. She denies exercising on a regular basis. [facility] Past Medical History Medical History Asthma Osteoporosis Dyslipidemia Vitamin D deficiency Essential hypertension Iron (Fe) deficiency anemia Hypothyroidism (acquired) (~1997) , delivered (~1998) Surgical History Surgical History History of hip replacement History of foot surgery left- bunion/flat foot H/O arthroplasty (~1995) d/t ACL and meniscal injury History of 2 sections 1996, 2003 S/P cholecystectomy (~1994) History of appendectomy (~1986) History of total left knee replacement (~03/2019) [facility] Family History Family History Father Hypertension Family history of pancreatic cancer, Onset Age: 58 Diabetes mellitus Asthma Grandparent Diabetes mellitus Stomach cancer Hypertension Sibling Asthma Social History Social History Social History: Teresita is , she lives in [place] with her Melvin. 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 Caffeine-coffee/tea Smoking status: Never smoker Alcohol intake: current Alcohol use details: Rarely Substance use: never Substance use type: does not use Do You Feel Safe in your Home?: Yes Lack of Transportation: No Lack of Food: Never True Current Housing: I Have Housing Concerned About Future Housing: No Difficulty Paying Gas/Electric Bills: No Difficulty Paying for Meds: No Currently Unemployed: No Education: Bachelor's Degree Difficulty w/ Childcare or Family Care: No Living arrangements: other Additional living arrangements comments: with sp Occupation/Education: occupation Additional occupation/education comments: IT Spiritual care concerns: No Medications Home Medications ?Medication ?Instructions ?Recorded ?Confirmed ?Type cholecalciferol (vitamin D3) 50 100 mcg (2 x 50 mcg (2,000 unit)) 10/14/22 10/22/24 Rx mcg (2,000 unit) capsule PO DAILY #90 caps multivitamin (Daily Multi-Vitamin 1 tablet PO DAILY 06/16/23 10/22/24 History tablet) estradiol 0.01% (0.1 mg/gram) 1 appful vaginal DAILY #42.5 grams 10/04/24 12/20/24 Rx vaginal cream (Estrace) levothyroxine 125 mcg capsule 125 mcg PO DAILY 08/06/24 10/22/24 History magnesium 200 mg tablet 200 mg PO DAILY 08/06/24 10/22/24 History levothyroxine 125 mcg tablet 125 mcg PO DAILY #90 tabs 10/22/24 10/22/24 Rx losartan 25 mg tablet 25 mg PO DAILY #90 tabs 10/22/24 10/22/24 Rx Sleep Procedure The sleep study was completed using [employer] ([employer]IS[employer]T a technically adequate device with seven channels: peripheral arterial tone, actigraphy, body position, snore, respiratory movement, pulse oximetry, sleep staging, and heart rate. Prior to using the device, the patient received verbal and written instructions for its application and was provided with the help desk phone number for additional telephonic instruction with 24-hour availability of qualified personnel to answe r questions. The study was scored using AASM guidelines. Sleep Architecture The total recording time is 8 hrs, 14 min. The total sleep time is 6 hrs, 57 min. Sleep latency is 18 minutes. REM latency is 44 minutes. The patient had 19 episodes of waking. Sleep architecture shows 11.5% deep sleep, 60.4% light sleep, and (as % Total Sleep Time) showed NREM (Light 60.4%; Deep 11.5%), and a 28.1% stage REM. The patient spent 24.7% of total sleep time in the supine position. Sleep efficiency was 84.41. Respiratory Analysis The overall AHI (pAHI 3%:) is 50.6. The central AHI is 1.2. The AHI was 46.0 in NREM and 62.5 in REM sleep. The AHI was 75.1 in Supine and 42.5 in Non-supine sleep. Percent of Srikanth Cruz respirations is 0.0. Oximetry Data The oxygen desaturation index (IBIS 4%:) is 30.0. The mean saturation is 93%, and the lowest saturation is 79%. Time spent with saturation < 88% is 2.3 minutes. Snoring Profile Snoring average intensity is 53 dB. The patient snored above 45 decibels for 303.5 minutes, 72.6% of sleep time. Cardiac Profile The average pulse rate is 58 beats per minutes. The lowest pulse rate is 48 bpm. The highest pulse rate reported is 96 bpm. Atrial fibrillation was not detected. Premature beats occur <0.1 per minute. Assessment and Plan Assessment and Plan (1) HITESH (obstructive sleep apnea): Code(s): G47.33 - Obstructive sleep apnea (adult) (pediatric) Status: Acute Assessment and Plan: The patient had an overall AHI of 50.6 with desaturation down to 79%. This is consistent with severe sleep apnea. I recommend that the patient have a CPAP titration study with the use of a hypnotic (Lunesta 2-3 mg or Ambien 5-10 mg) to ensure we obtain enough sleep data and find an optimal pressure. Data The data obtained during this sleep study is adequate for interpretation. Certification This sleep study has been reviewed by a board certified sleep medicine physician.
== END 2024-10-14 09:30 | disposition home or self-care (01) ==
PROVIDERS: PCP Family Medicine; Visit Provider Internal Medicine Cardiovascular Disease
DX: G47.10 Hypersomnia, unspecified (principal); G47.33 Obstructive sleep apnea (adult) (pediatric)
CPT/HCPCS: 95800

== ENCOUNTER 2024-10-22 09:51 | Outpatient (CLI) | payer BC, SELFPAY ==
[2024-10-22 18:09] LABS: Basophils Percent Auto 0.7 % (0.2-1.2); Eosinophils Absolute Auto 0.1 K/mm3 (0-0.3); Hematocrit 39.5 % (37.0-47.0); Hemoglobin 11.8 g/dL (12.0-15.0); Immature Granulocyte Absolute 0.02 K/mm3 (0.00-0.031); Immature Granulocyte Percent A 0.3 % (0-0.5); Lymphocytes Absolute Auto 1.64 K/mm3 (0.9-3.2); Lymphocytes Percent Auto 27.5 % (18.3-44.2); Mean Corpuscular HGB Conc 29.9 g/dl (32-36); Mean Corpuscular Volume 87.2 fl (80-100); Mean Platelet Volume 9.6 fl (7.4-10.4); Monocytes Absolute Auto 0.6 K/mm3 (0.1-0.6); Monocytes Percent Auto 10.6 % (2.6-8.5); Neutrophils Absolute Auto 3.5 K/mm3 (1.3-6.7); Neutrophils Percent Auto 58.9 % (45.5-73.1); Platelet Count Result 397 k/mm3 (150-375); Red Blood Count 4.53 M/mm3 (4.2-5.4); Red Cell Distribution Width 15.2 % (11.5-14.5)
[2024-10-22 18:21] LABS: Alanine Aminotransferase 25 U/L (6-35); Alkaline Phosphatase 106 U/L (38-126); Anion Gap 6 mmol/L (4-12); Aspartate Amino Transferase 41 U/L (14-36); Bilirubin,Total 0.5 mg/dL (0.2-1.3); Blood Urea Nitrogen 10 mg/dL (7-17); Calcium 9.3 mg/dL (8.4-10.2); Carbon Dioxide 27 mmol/L (22-30); Chloride 106 mmol/L (98-107); Cholesterol 220 mg/dL (0-200); Estimated Glomerular Filt Rate > 60; Glucose 93 mg/dL (65-110); HDL Direct 53 mg/dL; Potassium 3.9 mmol/L (3.4-5.0); Sodium 139 mmol/L (137-145); Triglycerides 109 mg/dL (<150)
[2024-10-22 18:32] LABS: LDL Cholesterol Direct 122 mg/dL
[2024-10-22 18:41] LABS: Free T4 Free Thyroxine 2.01 ng/dL (0.78-2.19); Vitamin D 25 Hydroxy 39.7 ng/mL
== END 2024-10-22 09:52 | disposition home or self-care (01) ==
LOC: ANHGOSHLAB 09:52
PROVIDERS: PCP Family Medicine; Visit Provider Nurse Practitioner Family
DX: E78.5 Hyperlipidemia, unspecified (principal); I10 Essential (primary) hypertension; E03.9 Hypothyroidism, unspecified; E55.9 Vitamin D deficiency, unspecified
CPT/HCPCS: 36415; 80053; 80061; 82306; 84439; 84443; 85025

== ENCOUNTER 2025-01-18 14:45 | Outpatient (RCR) | payer BC, SELFPAY ==
--- NOTE | 2024-12-08 16:38 | OPREHPOC ---
Outpatient Therapy Plan of Care This is a Multidisciplinary Plan of Care that may contain components documented by all disciplines (PT, OT, and ST.) PT Problem 1 PT Problem #1 Knowledge Deficit PT Goal 1 Goal / Goal Update 1. Pt to be IND with issued HEP Target Visit 8 PT Problem 2 PT Problem #2 Pain PT Goal 1 Goal / Goal Update 1. pt to report hip pain no greater than 3/10 in the last week. 2. Pt to report 75% reports to PLOF. Target Visit 10 PT Goal 1 Goal / Goal Update 1. Pt to improve 2 min walk distance from 335ft to 400ft without walker. 2. Pt to ambulate with equal stride length Target Visit 10 PT Problem 4 PT Problem #4 Impaired Functional Mobility PT Goal 1 Goal / Goal Update 1. Pt to demonstrate a 10lb lift and carry from ground level without compensations. Target Visit 10
--- NOTE | 2024-12-08 16:38 | PTOPEVAL1 ---
Assessment and note entered by Felisa Ny, PT, DPT Evaluation Information Assessment Status Evaluation Diagnosis L total hip replacement ICD-10 Condition Codes (PT) Pain in left hip M25.552,Aftercare following joint replacement surgery Z47.1 Onset 11/22/24 Subjective Information Pt states she had a L KEVIN on 11/22/24, she had a R KEVIN on 07/30/24. She states comparing to the R hip she is doing much better, she feels like she was stronger going into this procedure. She has been doing her HEP since surgery. She is currently using a walker, she is able to wean from the walker when tolerated. Reported Pain Level Pain Score 7: Self Report Assessment PT Clinical Summary Pt presents to therapy today for her initial evaluation following a L total hip replacement on 11/22/24. Today she demonstrates decreased ROM and strength in her L hip when compared to her R. She currently ambulates without active hip extension and requires the use of a walker. She has decreased functional mobility, partially limited by her hip precautions. Skilled therapy services are indicated to improve strength and ROM deficits , to normalize gait, and to return to PLOF. Plan of Care Interventions Electrical Stimulation,Gait Training,Hot Pack/Cold Pack,Manual Therapy,Neuro Re-education,Patient/ Caregiver Education,Therapeutic Activities, Therapeutic Exercise PT Services Indicated Yes Treatment Frequency and 1x/wk for 8 visits Duration These treatments will address the objective and functional deficits as defined above. The patient will be advanced safely and appropriately in order for the patient to progress towards his/her prior level of function. Additional exercises will be introduced and as well as a comprehensive home exercise program upon discharge, if needed, ?to ensure carryover of functional gains achieved in the clinic. This treatment plan has been reviewed and agreement upon by the patient.
--- NOTE | 2025-01-18 16:37 | OPREHPOC ---
Outpatient Therapy Plan of Care This is a Multidisciplinary Plan of Care that may contain components documented by all disciplines (PT, OT, and ST.) PT Problem 1 PT Problem #1 Knowledge Deficit PT Goal 1 Goal / Goal Update 1. Pt to be IND with issued HEP Target Visit 8 Progress Met PT Problem 2 PT Problem #2 Pain PT Goal 1 Goal / Goal Update 1. pt to report hip pain no greater than 3/10 in the last week. 2. Pt to report 75% reports to PLOF. 01/18/25: 1. met 2. met Target Visit 10 PT Goal 1 Goal / Goal Update 1. Pt to improve 2 min walk distance from 335ft to 400ft without walker. 2. Pt to ambulate with equal stride length 01/18/25: 1. progressing, 360ft 2. met Target Visit 10 PT Problem 4 PT Problem #4 Impaired Functional Mobility PT Goal 1 Goal / Goal Update 1. Pt to demonstrate a 10lb lift and carry from ground level without compensations. Target Visit 10
--- NOTE | 2025-01-18 16:37 | PTOPDC ---
Assessment and note entered by Felisa Ny, PT, DPT Evaluation Information Assessment Status Discharge Diagnosis L total hip replacement ICD-10 Condition Codes (PT) Pain in left hip M25.552,Aftercare following joint replacement surgery Z47.1 Onset 11/22/24 Subjective Information Pt states her hips are great and are feeling good. She states she is still limited with standing longer than 5 mins at a time. States she can walk at the grocery store without too many issues. She states is not having any hip pain, just mostly knee pain. Reported Pain Level Pain Score 0: Self Report Assessment PT Clinical Summary Pt presents to therapy today for her progress report following 7 visits of skilled therapy following a L total hip replacement on 11/22/24. Today she demonstrates improve hip ROM and strength. She demonstrates improved gait speed as well. She is making good progress towards her goals, at this time feels her L is her primary limiting factor. Pt plans to complete her HEP and will follow up if additional needs arise. Plan of Care PT Services Indicated No
== END 2025-01-19 09:03 | disposition home or self-care (01) ==
LOC: ANHGOSHPT 14:45
PROVIDERS: PCP Family Medicine
DX: Z47.1 Aftercare following joint replacement surgery (principal); M25.552 Pain in left hip; M16.12 Unilateral primary osteoarthritis, left hip; Z96.642 Presence of left artificial hip joint
CPT/HCPCS: 97110; 97140; 97161; 97530

== ENCOUNTER 2025-02-28 08:21 | Outpatient (CLI) | payer BC, SELFPAY ==
--- NOTE | ~2025-02-28 | US_ITS ---
RIGHT UPPER QUADRANT ABDOMINAL ULTRASOUND (Doppler ultrasound interrogation techniques used as needed for this exam.) Ordering provider: Elenita Martinez NP History: . elevated LFTs . Comparison: None. FINDINGS: PANCREAS: Normal echotexture and size of the visualized portion. PORTAL VEIN: Hepatopedal flow demonstrated. LIVER: Normal size and increased echotexture. No focal hepatic lesions or perihepatic fluid collectio ns are identified. BILIARY DUCTS: No intra or extrahepatic biliary dilation. Common bile duct measures 6 mm in diameter which is normal for patient's age. GALLBLADDER: Status post cholecystectomy. FREE FLUID: None visualized within the upper abdomen. IMPRESSION: Fat infiltration of the liver. Status post cholecystectomy. Otherwise, normal right upper quadrant ul trasound. Reviewed, dictated and finalized at location A. IMPRESSION: Fat infiltration of the liver. Status post cholecystectomy. Otherwise, normal r ight upper quadrant ultrasound.
== END 2025-02-28 08:22 | disposition home or self-care (01) ==
LOC: GOSHIMG 08:22
PROVIDERS: PCP Nurse Practitioner Family; Visit Provider Nurse Practitioner Family
DX: R79.89 Other specified abnormal findings of blood chemistry (principal); K76.0 Fatty (change of) liver, not elsewhere classified
CPT/HCPCS: 76705